=== PATIENT | female | born 1965 | race African-American/Black ===

== ENCOUNTER 2020-10-22 23:49 | Emergency (ER) | payer MEDICAID ==
[~2020-10-22] VITALS: Ht 157.5 cm; Wt 59.0 kg
[2020-10-23 01:23] VITALS: BP 123/90
== END 2020-10-23 01:24 | disposition home or self-care (01) ==
LOC: ER 23:49
DX: S05.12XA Contusion of eyeball and orbital tissues, left eye, initial encounter (principal); T73.0XXA Starvation, initial encounter; H11.32 Conjunctival hemorrhage, left eye; F31.9 Bipolar disorder, unspecified; Z88.0 Allergy status to penicillin; Z88.8 Allergy status to other drugs, medicaments and biological substances; Z59.0 Homelessness; Y08.89XA Assault by other specified means, initial encounter; Y93.89 Activity, other specified; Y92.89 Other specified places as the place of occurrence of the external cause; Y99.8 Other external cause status

== ENCOUNTER 2025-02-02 15:24 | Emergency (ER) | payer MEDICAID, OTHER ==
[~2025-02-02] VITALS: Ht 157.5 cm; Wt 63.5 kg
[2025-02-02 16:29] LABS: PLATELET COUNT (AUTO) 194 K/uL (150-450); RED BLOOD CELL COUNT(AUTO) 4.19 MIL/uL (4.0-5.2); RED CELL DISTRIBUTION WIDTH 14.3 % (11.5-15.0); WHITE BLOOD COUNT (AUTO) 6.9 K/uL (4.3-11.0)
[2025-02-02 16:46] LABS: CALCIUM, SERUM 9.0 mg/dL (8.5-10.1); CREATININE 0.6 mg/dL (0.6-1.3); SODIUM SERUM 143 mmol/L (136-145); UREA NITROGEN, BLOOD 13 mg/dL (7-18)
[2025-02-02 16:53] LABS: ASPARTATE AMINOTRANSFERASE 13 U/L (15-37); TOTAL PROTEIN, SERUM 7.6 g/dL (6.4-8.2)
[2025-02-02 17:01] LABS: ALCOHOL, BLOOD < 3 mg/dL (0-10)
[2025-02-03 02:03] VITALS: BP 114/65; TEMP 97; O2SAT 95
== END 2025-02-03 02:04 | disposition home or self-care (01) ==
LOC: ER 15:27
DX: R45.851 Suicidal ideations (principal); M79.10 Myalgia, unspecified site; F31.9 Bipolar disorder, unspecified; R10.2 Pelvic and perineal pain; Z59.00 Homelessness unspecified; Z88.0 Allergy status to penicillin; Z88.6 Allergy status to analgesic agent; Z20.822 Contact with and (suspected) exposure to COVID-19
CPT/HCPCS: 36415; 80048-TC; 80076-TC; 84702-TC; 85025-TC; G0480